=== PATIENT | female | born 2000 | race Caucasian/White ===

== ENCOUNTER 2021-12-31 19:36 | Emergency (ER) | payer BC, OTHER ==
[2021-12-31] MEDS ORDERED: Zofran 4 MG/2 ML VIAL IV ONE (19:37)
[2021-12-31] MEDS ORDERED: Sodium Chloride 0.9% 1000 ML 1,000 ML IV STA (19:37)
[2021-12-31] MEDS ORDERED: LIQUI-CHAR 50 GM PO ONE (19:37)
--- NOTE | 2021-12-31 19:50 | ERPHSYRPT ---
- History of Present Illness Source: patient, family, police Exam Limitations: no limitations Timing/Duration: today Severity of Symptoms-Max: moderate Severity of Symptoms-Current: moderate Context related to: significant other Suicidal thoughts: ingestion, specific plan Associated Symptoms: depressed, frustrated, suicidal ideation Previous symptoms: no prior history <ANTONIETTA BARR - Last Filed: 01/01/22 06:54> <ZENAIDA GRIMES - Last Filed: 01/01/22 18:57> - History of Present Illness Time Seen by Provider: 12/31/21 19:44 Physician History: Pt reports taking 8 blue OTC sleep aid tablets this pm due to suicidal ideation , and is still alert . No reported injury or symptoms. Normal exam but slightly tachcardic. (ANTONIETTA BARR) Allergies/Adverse Reactions: No Known Drug Allergies Allergy (Unverified 12/31/21 19:36) Home Medications: No Reportable Medications [No Reported Medications] 12/31/21 [History] - Past Medical History Pertinent Past Medical History: No <ANTONIETTA BARR - Last Filed: 01/01/22 06:54> - Review of Systems Constitutional: No Fever, No Chills Eyes: No Symptoms Ears, Nose, & Throat: No Symptoms Respiratory: No Cough, No Dyspnea Cardiac: No Chest Pain, No Edema, No Syncope Abdominal/Gastrointestinal: No Abdominal Pain, No Nausea, No Vomiting, No Diarrhea Genitourinary Symptoms: No Dysuria Musculoskeletal: No Back Pain, No Neck Pain Skin: No Symptoms, No Rash Neurological: No Dizziness, No Focal Weakness, No Sensory Changes Psychological: Depression, Suicidal Ideations Endocrine: No Symptoms Hematologic/Lymphatic: No Symptoms Immunological/Allergic: No Symptoms All Other Systems: Reviewed and Negative <ANTONIETTA BARR - Last Filed: 01/01/22 06:54> - Physical Exam General Appearance: no apparent distress Eyes, Ears, Nose, Throat Exam: normal ENT inspection, moist mucous membranes Neck Exam: normal inspection, non-tender, supple Respiratory Exam: normal breath sounds, lungs clear, No respiratory distress Cardiovascular Exam: regular rate/rhythm, No edema Gastrointestinal/Abdominal Exam: soft, No tenderness, No distention Extremities Exam: normal inspection, normal range of motion, No evidence of injury, No edema Peripheral Pulses: carotid (R): 2+, carotid (L): 2+, femoral (R): 2+, femoral (L): 2+, dorsalis-pedis (R): 2+, dorsalis-pedis (L): 2+ Current Suicidality: has suicide plan Neurological Exam: alert, 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, oriented x 3, depressed affect Appearance: appropriate appearance, no memory impairment Behavior/Eye Contact/Speech: alert & cooperative, avoids eye contact Thoughts/Hallucinations: normal thought pattern Skin Exam: normal color, warm, dry, No rash SpO2 Interpretation: normal SpO2: 99 O2 Delivery: Room Air <ANTONITETA BARR - Last Filed: 01/01/22 06:54> - Nursing Vital Signs Nursing Vital Signs: Initial Vital Signs Pulse Rate 117 H 12/31/21 19:36 Respiratory Rate 20 12/31/21 19:36 Blood Pressure 149/90 12/31/21 19:36 O2 Sat by Pulse Oximetry 100 12/31/21 19:36 Pain Scale Pain Intensity 0 - Course Nursing assessment & vital signs reviewed: Yes EKG Interpreted by Me: Sinus Tach, Non-specific ST Changes <ANTONIETTA BARR - Last Filed: 01/01/22 06:54> Ordered Tests: Active Orders 24 hr Category Date Time Status [employer] Feeder STAT Care 12/31/21 19:39 Completed Clean Catch Urine Specimen STAT Care 12/31/21 19:37 Completed EKG-ER Only STAT Care 12/31/21 19:37 Completed IV Insertion STAT Care 12/31/21 19:37 Completed Psychiatric Consult STAT Cons 12/31/21 19:37 Completed ACETAMINOPHEN Stat Lab 12/31/21 19:58 Completed CBC W DIFF Stat Lab 12/31/21 19:58 Completed CK (IN-HOUSE) [CK-Creatinine Phosphokinase] Stat Lab 12/31/21 19:58 Completed CMP Stat Lab 12/31/21 19:58 Completed COVID AG-BINAX NOW RAPID TEST Stat Lab 01/01/22 01:03 Completed CULTURE,URINE Stat Lab 12/31/21 19:39 Results ETHYL ALCOHOL Stat Lab 12/31/21 19:58 Completed HCG QUALITATIVE,SERUM Stat Lab 12/31/21 19:58 Completed Lactic Acid Stat Lab 12/31/21 19:46 Completed SALICYLATE Stat Lab 12/31/21 19:58 Completed UA W/RFX UR CULTURE Stat Lab 12/31/21 19:39 Completed Urine Triage Profile Stat Lab 12/31/21 19:39 Completed Medication Summary Discontinued Medications Generic Name Dose Route Start Last Admin Trade Name Conor PRN Reason Stop Dose Admin Charcoal 50 g 12/31/21 19:37 12/31/21 20:25 Activated Charcoal Solution 50 G Bottle PO 12/31/21 19:38 Not Given STAT ONE Sodium Chloride 1,000 mls @ 999 mls/hr 12/31/21 19:37 12/31/21 21:57 Sodium Chloride 0.9% 1000 Ml IV 12/31/21 20:37 Infused .Q1H1M STA Infusion Sodium Chloride Confirm 12/31/21 20:20 Sodium Chloride 0.9% 1000 Ml Administered 12/31/21 20:21 Dose 1,000 mls @ ud .ROUTE .STK-MED ONE Ondansetron HCl 4 mg 12/31/21 19:37 12/31/21 20:23 Ondansetron Hcl 4 Mg/2 Ml Vial IV 12/31/21 19:38 4 mg STAT ONE Administration Ondansetron HCl Confirm 12/31/21 20:20 Ondansetron Hcl 4 Mg/2 Ml Vial Administered 12/31/21 20:21 Dose 4 mg .ROUTE .STK-MED ONE Lab/Rad Data: Laboratory Result Diagrams 12/31/21 19:58 12/31/21 19:58 Laboratory Results 01/01/22 12/31/21 12/31/21 Range/Units 01:03 19:58 19:58 WBC (4.0-10.5) K/mm3 RBC (4.1-5.4) M/mm3 Hgb (12.0-16.0) gm/dl Hct (35-47) % MCV (78-100) fl MCH (26-32) pg MCHC (32-36) g/dl RDW (11.5-14.0) % Plt Count (150-450) K/mm3 MPV (7.5-11.0) fl Gran % (36.0-66.0) % Eos # (Auto) (0-0.5) Absolute Lymphs (auto) (1.0-4.6) Absolute Monos (auto) (0.0-1.3) Lymphocytes % (24.0-44.0) % Monocytes % (0.0-12.0) % Eosinophils % (0.00-5.0) % Basophils % (0.0-0.4) % Absolute Granulocytes (1.4-6.9) Basophils # (0-0.4) Sodium (137-145) mmol/L Potassium (3.5-5.1) mmol/L Chloride (98-107) mmol/L Carbon Dioxide (22-30) mmol/L Anion Gap (5-15) MEQ/L BUN (7-17) mg/dL Creatinine (0.52-1.04) mg/dL Estimated GFR ML/MIN Glucose (74-106) mg/dL Lactic Acid (0.4-2.0) Calcium (8.4-10.2) mg/dL Total Bilirubin (0.2-1.3) mg/dL AST (14-36) U/L ALT (0-35) U/L Alkaline Phosphatase (38-126) U/L Creatine Kinase 55 (30-135) U/L Serum Total Protein (6.3-8.2) g/dL Albumin (3.5-5.0) g/dL Serum , Qual NEGATIVE (Negative) Urine Color (YELLOW) Urine Appearance (CLEAR) Urine pH (5-6) Ur Specific [place] (1.005-1.025) Urine Protein (Negative) Urine Ketones (NEGATIVE) Urine Blood (0-5) Kiko/ul Urine Nitrite (NEGATIVE) Urine Bilirubin (NEGATIVE) Urine Urobilinogen (0-1) mg/dL Ur Leukocyte Esterase (NEGATIVE) Urine WBC (Auto) (0-5) /HPF Urine RBC (Auto) (0-2) /HPF U Epithel Cells (Auto) (FEW) /HPF Urine Bacteria (Auto) (NEGATIVE) /HPF Urine Mucus (Auto) (NEGATIVE) /HPF Urine Culture Reflexed (NO) Urine Glucose (NEGATIVE) mg/dL Salicylates (2-20) mg/dL Urine Opiates Level (NEGATIVE) Ur Methadone (NEGATIVE) Acetaminophen (10-30) ug/ml Urine Barbiturates (NEGATIVE) Ur Phencyclidine (PCP) (NEGATIVE) Urine Amphetamine (NEGATIVE) U Benzodiazepine Level (NEGATIVE) Urine Cocaine (NEGATIVE) Urine Marijuana (THC) (NEGATIVE) Ethyl Alcohol (0-10) mg/dL SARS-CoV-2 Ag (Rapid) NEGATIVE (NEGATIVE) 12/31/21 12/31/21 12/31/21 Range/Units 19:58 19:58 19:46 WBC 9.4 (4.0-10.5) K/mm3 RBC 4.63 (4.1-5.4) M/mm3 Hgb 14.1 (12.0-16.0) gm/dl Hct 43.6 (35-47) % MCV 94.2 (78-100) fl MCH 30.5 (26-32) pg MCHC 32.3 (32-36) g/dl RDW 12.5 (11.5-14.0) % Plt Count 327 (150-450) K/mm3 MPV 10.0 (7.5-11.0) fl Gran % 87.3 H (36.0-66.0) % Eos # (Auto) 0 (0-0.5) Absolute Lymphs (auto) 0.81 L (1.0-4.6) Absolute Monos (auto) 0.36 (0.0-1.3) Lymphocytes % 8.7 L (24.0-44.0) % Monocytes % 3.9 (0.0-12.0) % Eosinophils % 0.0 (0.00-5.0) % Basophils % 0.1 (0.0-0.4) % Absolute Granulocytes 8.17 H (1.4-6.9) Basophils # 0.01 (0-0.4) Sodium 140 (137-145) mmol/L Potassium 4.3 (3.5-5.1) mmol/L Chloride 100 (98-107) mmol/L Carbon Dioxide 26 (22-30) mmol/L Anion Gap 17.8 H (5-15) MEQ/L BUN 13 (7-17) mg/dL Creatinine 0.66 (0.52-1.04) mg/dL Estimated GFR > 60.0 ML/MIN Glucose 108 H (74-106) mg/dL Lactic Acid 1.9 (0.4-2.0) Calcium 9.9 (8.4-10.2) mg/dL Total Bilirubin 0.80 (0.2-1.3) mg/dL AST 22 (14-36) U/L ALT 15 (0-35) U/L Alkaline Phosphatase 75 (38-126) U/L Creatine Kinase (30-135) U/L Serum Total Protein 8.5 H (6.3-8.2) g/dL Albumin 5.1 H (3.5-5.0) g/dL Serum , Qual (Negative) Urine Color (YELLOW) Urine Appearance (CLEAR) Urine pH (5-6) Ur Specific [place] (1.005-1.025) Urine Protein (Negative) Urine Ketones (NEGATIVE) Urine Blood (0-5) Kiko/ul Urine Nitrite (NEGATIVE) Urine Bilirubin (NEGATIVE) Urine Urobilinogen (0-1) mg/dL Ur Leukocyte Esterase (NEGATIVE) Urine WBC (Auto) (0-5) /HPF Urine RBC (Auto) (0-2) /HPF U Epithel Cells (Auto) (FEW) /HPF Urine Bacteria (Auto) (NEGATIVE) /HPF Urine Mucus (Auto) (NEGATIVE) /HPF Urine Culture Reflexed (NO) Urine Glucose (NEGATIVE) mg/dL Salicylates < 1.0 L (2-20) mg/dL Urine Opiates Level (NEGATIVE) Ur Methadone (NEGATIVE) Acetaminophen < 10 L (10-30) ug/ml Urine Barbiturates (NEGATIVE) Ur Phencyclidine (PCP) (NEGATIVE) Urine Amphetamine (NEGATIVE) U Benzodiazepine Level (NEGATIVE) Urine Cocaine (NEGATIVE) Urine Marijuana (THC) (NEGATIVE) Ethyl Alcohol < 10 (0-10) mg/dL SARS-CoV-2 Ag (Rapid) (NEGATIVE) 12/31/21 12/31/21 Range/Units 19:39 19:39 WBC (4.0-10.5) K/mm3 RBC (4.1-5.4) M/mm3 Hgb (12.0-16.0) gm/dl Hct (35-47) % MCV (78-100) fl MCH (26-32) pg MCHC (32-36) g/dl RDW (11.5-14.0) % Plt Count (150-450) K/mm3 MPV (7.5-11.0) fl Gran % (36.0-66.0) % Eos # (Auto) (0-0.5) Absolute Lymphs (auto) (1.0-4.6) Absolute Monos (auto) (0.0-1.3) Lymphocytes % (24.0-44.0) % Monocytes % (0.0-12.0) % Eosinophils % (0.00-5.0) % Basophils % (0.0-0.4) % Absolute Granulocytes (1.4-6.9) Basophils # (0-0.4) Sodium (137-145) mmol/L Potassium (3.5-5.1) mmol/L Chloride (98-107) mmol/L Carbon Dioxide (22-30) mmol/L Anion Gap (5-15) MEQ/L BUN (7-17) mg/dL Creatinine (0.52-1.04) mg/dL Estimated GFR ML/MIN Glucose (74-106) mg/dL Lactic Acid (0.4-2.0) Calcium (8.4-10.2) mg/dL Total Bilirubin (0.2-1.3) mg/dL AST (14-36) U/L ALT (0-35) U/L Alkaline Phosphatase (38-126) U/L Creatine Kinase (30-135) U/L Serum Total Protein (6.3-8.2) g/dL Albumin (3.5-5.0) g/dL Serum , Qual (Negative) Urine Color YELLOW (YELLOW) Urine Appearance SLIGHTLY CLOUDY (CLEAR) Urine pH 5.0 (5-6) Ur Specific [place] 1.025 (1.005-1.025) Urine Protein 30 (Negative) Urine Ketones NEGATIVE (NEGATIVE) Urine Blood NEGATIVE (0-5) Kiko/ul Urine Nitrite NEGATIVE (NEGATIVE) Urine Bilirubin NEGATIVE (NEGATIVE) Urine Urobilinogen NEGATIVE (0-1) mg/dL Ur Leukocyte Esterase TRACE (NEGATIVE) Urine WBC (Auto) 3-5 (0-5) /HPF Urine RBC (Auto) NONE (0-2) /HPF U Epithel Cells (Auto) RARE (FEW) /HPF Urine Bacteria (Auto) NONE (NEGATIVE) /HPF Urine Mucus (Auto) MODERATE (NEGATIVE) /HPF Urine Culture Reflexed YES (NO) Urine Glucose NEGATIVE (NEGATIVE) mg/dL Salicylates (2-20) mg/dL Urine Opiates Level NEGATIVE (NEGATIVE) Ur Methadone NEGATIVE (NEGATIVE) Acetaminophen (10-30) ug/ml Urine Barbiturates NEGATIVE (NEGATIVE) Ur Phencyclidine (PCP) NEGATIVE (NEGATIVE) Urine Amphetamine NEGATIVE (NEGATIVE) U Benzodiazepine Level NEGATIVE (NEGATIVE) Urine Cocaine NEGATIVE (NEGATIVE) Urine Marijuana (THC) NEGATIVE (NEGATIVE) Ethyl Alcohol (0-10) mg/dL SARS-CoV-2 Ag (Rapid) (NEGATIVE) - Progress Progress: improved, re-examined Discussed with : Malina Counseled pt/family regarding: lab results, diagnosis, need for follow-up <ANTONIETTA BARR - Last Filed: 01/01/22 06:54> <ZENAIDA GRIMES - Last Filed: 01/01/22 18:57> - Progress Progress Note: 12/31/21 20:03 pt is becoming a little sleepy and has been 3-4 hours after ingestion and limited use for charcoal - discussed with poison control and no charcoal ad vised at this time just observation and at least 6 hours then telemental. 12/31/21 21:20 this pt will require a 6 hour observation period per Poison control recommendation and then tele mental all of which will require a prolonged visit 01/01/22 02:55 pt is cleared now clinically/medically for psych facility transfer, and [facility] conducted a telepsych eval and determined that she is appro priate for admission there, but has a 12 hour holding requirement prior to admissions there which will be 0730 this am , after our change of shift in ER. We will proceed with this extended period of observation in ER , at this time today, since we have the resources at this time, to avoid an admission both here and another facility ( double admission) . However if the ER becomes busier and at times when it is busier, we might have to pursue admission here anyway to avoid this lengthy ER stay. 01/01/22 03:[address] Ayala who is button tufter and he feels best at this time and with the above constraints to continue holding the pt in ER until [facility] can address her status for admission there at 0730 this morning. 01/01/22 04:18 The pt is being turned over to Dr. Grimes at 0700 change of shift for final disposition after discussion of pending [facility] action above and review of case and findings . 01/01/22 06:54 pt remains resting comfortably and stable, awaiting changeover as above. (ANTONIETTA BARR) 01/01/22 09:36 patient is checked out to me at shift change from Dr. Salazar with pending transfer to [facility]. Patient remained stable throughout stay with ks. Patient is accepted for transfer by Dr. Duran at [facility]. (ZENAIDA GRIMES) <ANTONIETTA BARR - Last Filed: 01/01/22 06:54> - Departure Departure Disposition: Transfer Critical Care Time: No <ZENAIDA GRIMES - Last Filed: 01/01/22 18:57> - Departure Clinical Impression: Suicidal ideations, Drug overdose Condition: Stable Referrals: LAKESHA HERRERA [Family Provider] - Follow up/PCP as directed
[2021-12-31 20:14] LABS: Absolute Neutrophil Ct (ANC) 8.17 (1.4-6.9); Basophil (Absolute #) 0.01 (0-0.4); Eosinophil (Absolute #) 0 (0-0.5); Hematocrit 43.6 % (35-47); Hemoglobin 14.1 gm/dl (12.0-16.0); Lymphocyte (Absolute #) 0.81 (1.0-4.6); Lymphocytes % 8.7 % (24.0-44.0); Mean Cell Volume 94.2 fl (78-100); Mean Corpuscular Hemoglobin 30.5 pg (26-32); Mean Corpuscular Hgb Concent. 32.3 g/dl (32-36); Monocyte (Absolute #) 0.36 (0.0-1.3); Monocytes % 3.9 % (0.0-12.0); Neutrophil % 87.3 % (36.0-66.0); Platelet Count 327 K/mm3 (150-450); Red Blood Count 4.63 M/mm3 (4.1-5.4); Red Cell Distribution Width 12.5 % (11.5-14.0); White Blood Count 9.4 K/mm3 (4.0-10.5)
[2021-12-31 20:16] LABS: ACETAMINOPHEN < 10 ug/ml (10-30); ALBUMIN 5.1 g/dL (3.5-5.0); ALKALINE PHOSPHATASE 75 U/L (38-126); ANION GAP 17.8 MEQ/L (5-15); BLOOD UREA NITROGEN 13 mg/dL (7-17); CHLORIDE 100 mmol/L (98-107); Calcium 9.9 mg/dL (8.4-10.2); Carbon Dioxide 26 mmol/L (22-30); Creatinine 1 0.66 mg/dL (0.52-1.04); EST GLOMERULAR FILTRATION RATE > 60.0 ML/MIN; ETHYL ALCOHOL < 10 mg/dL (0-10); Glucose 108 mg/dL (74-106); Potassium 4.3 mmol/L (3.5-5.1); SALICYLATE < 1.0 mg/dL (2-20); SGOT/AST 22 U/L (14-36); SGPT/ALT 15 U/L (0-35); SODIUM 140 mmol/L (137-145); Total Protein 8.5 g/dL (6.3-8.2)
[2021-12-31] MEDS ORDERED: Zofran 4 MG/2 ML VIAL ONE (20:20)
[2021-12-31] MEDS ORDERED: Sodium Chloride 0.9% 1000 ML 1,000 ML ONE (20:20)
[2021-12-31 20:35] LABS: Appearance SLIGHTLY CLOUDY (CLEAR); Bilirubin NEGATIVE (NEGATIVE); Blood NEGATIVE Ery/ul (0-5); Epithelial Cells RARE /HPF (FEW); Glucose NEGATIVE (NEGATIVE); Ketones NEGATIVE (NEGATIVE); Leukocyte Esterase TRACE (NEGATIVE); Mucus MODERATE /HPF (NEGATIVE); Nitrite NEGATIVE (NEGATIVE); Protein,Urine Dip 30 (Negative); Specific Gravity 1.025 (1.005-1.025); Urobilinogen NEGATIVE mg/dL (0-1)
[2021-12-31 20:46] LABS: Amphetamine,Urine NEGATIVE (NEGATIVE); Barbiturate,Urine NEGATIVE (NEGATIVE); Benzodiazepine,Urine NEGATIVE (NEGATIVE); Cocaine,Urine NEGATIVE (NEGATIVE); Methadone,Urine NEGATIVE (NEGATIVE); Opiate,Urine NEGATIVE (NEGATIVE); PCP,Urine NEGATIVE (NEGATIVE); THC,Urine NEGATIVE (NEGATIVE)
[2022-01-01 01:20] LABS: COVID AG -BINAX NOW RAPID TEST NEGATIVE (NEGATIVE)
[2022-01-01 07:45] VITALS: O2SAT 98
[2022-01-01 08:58] VITALS: BP 111/65; PULSE 88
== END 2022-01-01 09:25 | disposition short-term general hospital (02) ==
LOC: EEVIPCON 19:36 → ED 19:36
DX: T14.91XA Suicide attempt, initial encounter (principal); T45.0X2A Poisoning by antiallergic and antiemetic drugs, intentional self-harm, initial encounter; R40.0 Somnolence
CPT/HCPCS: 36000; 36415; 80053; 80307; 81001; 81025; 82550; 83605; 85025; 87086; 90791; 93005; 93041; 96374; 99000; 99285; Q3014; J2405; G0480